=== PATIENT | male | born 1995 | race Caucasian/White ===

== ENCOUNTER 2016-06-07 14:24 | Day surgery (SDC) | payer OTHER ==
[2016-06-06 10:06] VITALS: BMI 37.5
[2016-06-07] MEDS ORDERED: PROPOFOL 20 ML ONE ×2 (14:43→15:33)
[2016-06-07] MEDS ORDERED: LIDOCAINE HCL/PF 2% SDV 5ML VIAL ONE (14:46)
[2016-06-07] MEDS ORDERED: MIDAZOLAM HCL 2 MG/2 ML SINGLE DOSE VIAL ONE (15:10)
[2016-06-07] MEDS ORDERED: ceFAZolin SODIUM 1 GM VIAL ONE (15:24)
[2016-06-07] MEDS ORDERED: BUPIVACAINE HCL/PF 0.25% (2.5MG/ML) 10 ML VIAL IJ ONE (16:26)
[2016-06-07] MEDS: ONDANSETRON 4 MG/2 ML VIAL IVPUSH PRN ×2 (17:02→17:50)
[2016-06-07] MEDS ORDERED: ONDANSETRON 4 MG/2 ML VIAL ONE ×2 (17:02→17:49)
[2016-06-07] MEDS ORDERED: PROMETHAZINE HCL 25 MG/1 ML VIAL ONE (17:17)
[2016-06-07 20:10] VITALS: BP 130/74; PULSE 80; TEMP 98
--- NOTE | 2016-06-11 19:29 | OP ---
DATE OF OPERATION: 06/07/2016 PREOPERATIVE DIAGNOSIS: Right small finger laceration with likely flexor tendon injury. PREOPERATIVE DIAGNOSES: 1. Right small finger laceration with complete laceration of flexor digitorum profundus in zone 2. 2. Right small finger partial flexor digitorum superficialis laceration. OPERATIVE PROCEDURES: 1. Right small finger flexor digitorum profundus repair in zone 2. 2. Right small finger flexor digitorum superficialis repair in zone 2. SURGEON: Willis Espinoza MD WINDOWS SECURITY ENGINEER: GURPREET Thibodeaux ANESTHESIA: General. COMPLICATIONS: None. ESTIMATED BLOOD LOSS: Minimal. INDICATIONS FOR PROCEDURE: The patient is a 20-year-old male with the above finding, indicated for operative treatment. Risks, benefits, alternatives were discussed with patient at length. Proper informed consent was obtained. PROCEDURE: After proper identification of patient and correct operative site, patient was brought to operating room, placed supine on the operating room table. All prominences well padded. General anesthesia provided by the anesthesiologist, adequate for procedure. The right upper extremity was prepped and draped in usual sterile fashion. A well-padded tourniquet was placed with a sterile prep. Esmarch bandage to exsanguinate right upper extremity. Tourniquet was inflated to 250 mmHg. The patient's incision was extended both proximally and distally with a Caren incision. Blunt and sharp dissection was performed to the subcutaneous tissues, carefully protecting the neurovascular structures. The flexor tendon sheath was noted to be lacerated in between the A2 and the A4 pulleys. This interval over flexor tendon sheath was opened and the FDP tendon was found to be completely lacerated. The distal aspect of the proximal stump was found to be present at the distal aspect of the A2 terry, so no further dissection proximally needed to be performed. This was secured and found to be a clean laceration. The distal tendon, however, was not present in this area and further incision distally was necessary, again in a Caren fashion, and it was found to be present at the distal aspect of the A4 terry. At the insertion of the superficialis tendon, there was also partial lacerations of both slips of the FDS tendon. However, greater than 50% of each slip was intact. The profundus tendon was then able to be passed through the 2 slips of the FDS and through the A4 terry and was repaired with 4 core sutures of Arthrex FiberWire size 4-0 suture. Unfortunately the A4 terry prevented gliding of the tendon after the repair, slightly increased the bulk of the tendon in this area. Therefore, one of the slips of the FDS tendon was resected and the distal aspect of the A4 terry was vented. This allowed the tendon to glide through the A4 terry. The other portion of the FDS tendon was also repaired with a 4-0 FiberWire suture. The finger was taken through a range of motion and normal tendon gliding now occurred. The wound was irrigated with copious amounts of normal saline. There was no gapping at the tendon repair sites. Skin was repaired with 5-0 fast absorbing plain gut as well as Dermabond. Sterile dressings and a splint were placed. The patient was reversed from anesthesia and brought to the recovery room in stable condition. He tolerated the procedure well. Kenney Gomez, the assistant professor of biochemistry, was integral throughout the procedure, and this procedure could not have been performed without a skilled operative assistant professor of biochemistry. Andrea [id number]
== END 2016-06-07 20:00 | disposition home or self-care (01) ==
LOC: FASU 14:24
PROVIDERS: ATTEND Orthopaedic Surgery Hand Surgery
PROC: 0LQ70ZZ Repair Right Hand Tendon, Open Approach (ICD-10-PCS; principal; 2016-06-07 17:00)
DX: S66.126A Laceration of flexor muscle, fascia and tendon of right little finger at wrist and hand level, initial encounter (principal); X58.XXXA Exposure to other specified factors, initial encounter; Y93.9 Activity, unspecified; Y92.9 Unspecified place or not applicable
CPT/HCPCS: 94760